=== PATIENT | male | born 1955 ===

== ENCOUNTER 2020-11-06 05:25 | Day surgery (SDC) | payer OTHER ==
[~2020-11-06 05:25] MED LIST: CARDURA XL4 MG PO; FORTAMET500 MG PO; HUMU; HUMULIN R100 UNIT/1; LEVOTHY; LOSARTAN-HCTZ1 EAC1 PO; NIACIN100 MG PO
[2020-11-06] MEDS ORDERED: PERCOCET 5-3251 EACH PO (09:56)
== END 2020-11-06 15:50 | disposition home or self-care (01) ==
LOC: CIR.AMB 05:25
PROVIDERS: ATTEND Surgery
DX: N52.01 Erectile dysfunction due to arterial insufficiency (principal); Z20.822 Contact with and (suspected) exposure to COVID-19
CPT/HCPCS: 54405; C1813